=== PATIENT | female | born 1935 | race Caucasian/White ===

== ENCOUNTER 2021-03-01 07:10 | Emergency (ER) | payer MEDICARE, BC ==
[~2021-03-01] VITALS: Ht 157.5 cm; Wt 45.4 kg
[2021-03-01] MEDS ORDERED: TDAP DIPH,PERTUSS,TET VAC/PF 0.5 ML DISP.SYRIN IM ONE ×2 (08:15→08:36)
--- NOTE | 2021-03-01 08:24 | NUR ---
PT IS IN ROOM #2B. DR URIBE EVALUATED THE PT.
[2021-03-01 09:51] LABS: HEMATOCRIT 39.8 % (31.2-41.9); MEAN CORPUSCULAR HEMOGLOBIN 33.2 uug (24.7-32.8); MEAN CORPUSCULAR VOLUME 98.5 fL (75.5-95.3); PLATELET COUNT (AUTO) 150 K/uL (179-408)
[2021-03-01 09:59] LABS: CREATININE 0.9 mg/dL (0.6-1.3); POTASSIUM 4.1 mmol/L (3.5-5.1)
[2021-03-01 10:04] LABS: BILIRUBIN,DIRECT 0.1 mg/dL (0.0-0.2); BILIRUBIN,TOTAL 0.4 mg/dL (0.2-1.0); TOTAL PROTEIN, SERUM 7.4 g/dL (6.4-8.2)
--- NOTE | 2021-03-01 11:28 | NUR ---
PT WAS EVALUATED BY DR URIBE. PT WAS D/C'd TO HOME. D/C INSTRUCTIONS GIVEN TO THE PT AND TO PT's DOUGHTER.
[2021-03-01 11:30] VITALS: BP 139/75
== END 2021-03-01 11:38 | disposition home or self-care (01) ==
LOC: ER 07:10
DX: S09.90XA Unspecified injury of head, initial encounter (principal); S00.03XA Contusion of scalp, initial encounter; W01.0XXA Fall on same level from slipping, tripping and stumbling without subsequent striking against object, initial encounter; Y92.019 Unspecified place in single-family (private) house as the place of occurrence of the external cause; R94.31 Abnormal electrocardiogram [ECG] [EKG]; R03.0 Elevated blood-pressure reading, without diagnosis of hypertension; H40.9 Unspecified glaucoma; I65.29 Occlusion and stenosis of unspecified carotid artery; M46.02 Spinal enthesopathy, cervical region
CPT/HCPCS: 36415; 70450; 72125; 85025; 90715; 93005; A4217; A4663

== ENCOUNTER 2021-03-03 11:26 | Emergency (ER) | payer MEDICARE, BC ==
[~2021-03-03] VITALS: Ht 152.4 cm; Wt 45.4 kg
[2021-03-03 12:50] VITALS: BP 133/78
== END 2021-03-03 12:50 | disposition home or self-care (01) ==
LOC: ER 11:27
DX: S01.01XD Laceration without foreign body of scalp, subsequent encounter (principal); W01.0XXD Fall on same level from slipping, tripping and stumbling without subsequent striking against object, subsequent encounter; R03.0 Elevated blood-pressure reading, without diagnosis of hypertension
CPT/HCPCS: A4663

== ENCOUNTER 2022-11-25 14:23 | Inpatient (IN) | payer MEDICARE, BC ==
[~2022-11-25] VITALS: Ht 167.6 cm; Wt 61.2 kg
[~2022-11-25 14:23] MED LIST: CHOL2000 PO; CYAN100020 PO; DONE5TAB34 PO; DORZ10DR11 EACHEYE; LATA2.5D15 EACHEYE
[2022-11-25 15:58] VITALS: BP 120/62; TEMP 98.4; O2SAT 95
[2022-11-25] MEDS ORDERED: PANT40TA2 PO (16:52)
[2022-11-25] MEDS ORDERED: DOCU-141 PO (16:52)
[2022-11-25] MEDS ORDERED: ZOLP5TAB2 PO (16:52)
[2022-11-25] MEDS ORDERED: METO25TA6 PO ×2 (16:52)
[2022-11-25] MEDS ORDERED: ACETAMINOPHEN 325 MG TABLET PO PRN (17:00)
[2022-11-25] MEDS ORDERED: hydrALAZINE HCL 25 MG TABLET PO PRN (17:00)
[2022-11-25] MEDS: DORZOLAMIDE/TIMOLOL OPHT DROP 10 ML BOTTLE EACHEYE SCH (17:05)
[2022-11-25] MEDS ORDERED: ZOLPIDEM 5 MG TABLET PO PRN (17:15)
[2022-11-25 17:25] LABS: *RHEUMATOID FACTOR SCREEN NEGATIVE (NEGATIVE)
[2022-11-25 21:34] VITALS: BP 147/76; TEMP 98; O2SAT 0
[2022-11-25] MEDS: METOPROLOL TARTRATE 25 MG TABLET PO SCH (21:48)
[2022-11-25] MEDS: LATANOPROST OPHT DROP 2.5 ML BOTTLE EACHEYE SCH (21:48)
[2022-11-26 05:47] VITALS: BP 156/77; TEMP 98.2; O2SAT 100
[2022-11-26] MEDS: PANTOPRAZOLE SODIUM 40 MG TABLET.DR PO SCH (06:51)
[2022-11-26 07:12] LABS: BASOPHILS # (AUTO) 0.1 K/UL (0.0-0.2); BASOPHILS % (AUTO) 1.1 % (0.0-2.0); EOSINOPHILS # (AUTO) 0.1 K/uL (0.0-0.7); EOSINOPHILS % (AUTO) 1.9 % (0.0-7.0); HEMATOCRIT 38.5 % (31.2-41.9); HEMOGLOBIN 12.8 g/dL (10.9-14.3); MEAN CORPUSCULAR HEMOGLOBIN 32.6 uug (24.7-32.8); MEAN CORPUSCULAR HGB CONC 33 g/dL (32.3-35.6); MEAN CORPUSCULAR VOLUME 98.4 fL (75.5-95.3); MONOCYTES # (AUTO) 0.5 K/uL (0.1-1.30); MONOCYTES % (AUTO) 9.5 % (0.0-11.0); NEUTROPHILS # (AUTO) 3.1 K/uL (1.8-8.9); NEUTROPHILS % (AUTO) 65.5 % (38.5-71.5); PLATELET COUNT (AUTO) 173 K/uL (179-408); RED BLOOD CELL COUNT(AUTO) 3.91 MIL/uL (3.63-4.92); RED CELL DISTRIBUTION WIDTH 14.4 % (12.3-17.7); WHITE BLOOD COUNT (AUTO) 4.7 K/uL (3.8-11.8)
[2022-11-26 07:24] LABS: DIFFERENTIAL COMMENT 1
[2022-11-26 07:40] VITALS: BP 139/78; TEMP 98.6; O2SAT 99
[2022-11-26] MEDS: DORZOLAMIDE/TIMOLOL OPHT DROP 10 ML BOTTLE EACHEYE SCH ×2 (08:04→16:27)
[2022-11-26] MEDS: DONEPEZIL 5 MG TABLET PO SCH (08:05)
[2022-11-26] MEDS: METOPROLOL TARTRATE 25 MG TABLET PO SCH ×2 (08:05→20:22)
[2022-11-26] MEDS: CHOLECALCIFEROL 1,000 UNIT TABLET PO SCH (08:05)
[2022-11-26] MEDS ORDERED: Medication Not On Formulary EA (Cholecalciferol (Vitamin D3) (Vitamin D3) 1 CAP) PO SCH (09:00)
[2022-11-26] MEDS ORDERED: CYANOCOBALAMIN 1,000 MCG TABLET PO SCH (09:00)
[2022-11-26 09:07] LABS: FOLATE (FOLIC ACID), SERUM 7.3 ng/mL (>3.0)
[2022-11-26 10:06] LABS: CANCER AG, 125 17.3 U/mL (0.0-38.1); CARCINOEMBRYONIC AG (CEA) 1.7 ng/mL (0.0-4.7)
[2022-11-26 11:07] LABS: HEPATITIS B SURFACE AB, QUAL Non Reactive (.); HEPATITIS B SURFACE AG Negative (Negative); HEPATITIS C VIRUS ANTIBODY Non Reactive (Non Reactive)
[2022-11-26 12:06] LABS: *ANTI-SCLERODERMA-70 AB <0.2 AI (0.0-0.9); *RNP ANTIBODIES 0.3 AI (0.0-0.9); *SJOGREN'S ANTI-SS-A <0.2 AI (0.0-0.9); *SJOGREN'S ANTI-SS-B <0.2 AI (0.0-0.9); *SMITH ANTIBODIES <0.2 AI (0.0-0.9); ANTI-DNA(DS) AB, QN <1 IU/mL (0-9); ANTI-NUCLEAR AB DIRECT Negative (Negative)
[2022-11-26 15:56] VITALS: BP 146/82; TEMP 98.5; O2SAT 98
[2022-11-26] MEDS: ACETAMINOPHEN 325 MG TABLET PO PRN (19:39)
[2022-11-26] MEDS: DOCUSATE SODIUM 100 MG CAPSULE PO SCH (20:01)
[2022-11-26 20:20] VITALS: BP 136/76; TEMP 97.6; O2SAT 96
[2022-11-26] MEDS: LATANOPROST OPHT DROP 2.5 ML BOTTLE EACHEYE SCH (20:22)
[2022-11-27 04:20] VITALS: BP 125/69; TEMP 97.9; O2SAT 97
[2022-11-27] MEDS: PANTOPRAZOLE SODIUM 40 MG TABLET.DR PO SCH (06:15)
[2022-11-27 06:52] LABS: BASOPHILS # (AUTO) 0.1 K/UL (0.0-0.2); BASOPHILS % (AUTO) 1.1 % (0.0-2.0); EOSINOPHILS # (AUTO) 0.1 K/uL (0.0-0.7); EOSINOPHILS % (AUTO) 1.9 % (0.0-7.0); HEMATOCRIT 33.2 % (31.2-41.9); HEMOGLOBIN 11.2 g/dL (10.9-14.3); LYMPHOCYTES # (AUTO) 1.1 K/uL (0.8-4.8); LYMPHOCYTES % (AUTO) 21.3 % (20.5-51.5); MEAN CORPUSCULAR HGB CONC 34 g/dL (32.3-35.6); MEAN CORPUSCULAR VOLUME 97.6 fL (75.5-95.3); MONOCYTES # (AUTO) 0.6 K/uL (0.1-1.30); MONOCYTES % (AUTO) 11.8 % (0.0-11.0); NEUTROPHILS # (AUTO) 3.4 K/uL (1.8-8.9); NEUTROPHILS % (AUTO) 63.9 % (38.5-71.5); PLATELET COUNT (AUTO) 185 K/uL (179-408); RED CELL DISTRIBUTION WIDTH 14.4 % (12.3-17.7); WHITE BLOOD COUNT (AUTO) 5.4 K/uL (3.8-11.8)
[2022-11-27 07:06] LABS: DIFFERENTIAL COMMENT 1
[2022-11-27 08:00] VITALS: BP 105/49; TEMP 98; O2SAT 94
[2022-11-27] MEDS: CHOLECALCIFEROL 1,000 UNIT TABLET PO SCH (09:55)
[2022-11-27] MEDS: METOPROLOL TARTRATE 25 MG TABLET PO SCH ×2 (09:55→21:00)
[2022-11-27] MEDS: DONEPEZIL 5 MG TABLET PO SCH (09:55)
[2022-11-27] MEDS: DORZOLAMIDE/TIMOLOL OPHT DROP 10 ML BOTTLE EACHEYE SCH ×2 (10:05→16:27)
[2022-11-27] MEDS: ACETAMINOPHEN 325 MG TABLET PO PRN (10:37)
[2022-11-27 12:34] VITALS: TEMP 97.4
[2022-11-27 15:28] VITALS: TEMP 97.8
[2022-11-27] MEDS: DOCUSATE SODIUM 100 MG CAPSULE PO SCH (21:00)
[2022-11-27] MEDS: LATANOPROST OPHT DROP 2.5 ML BOTTLE EACHEYE SCH (21:00)
[2022-11-27 22:06] VITALS: BP 130/60; TEMP 98; O2SAT 100
[2022-11-28 05:03] VITALS: BP 144/77; TEMP 98; O2SAT 100
[2022-11-28] MEDS: PANTOPRAZOLE SODIUM 40 MG TABLET.DR PO SCH (06:44)
[2022-11-28 06:45] LABS: BASOPHILS # (AUTO) 0.1 K/UL (0.0-0.2); BASOPHILS % (AUTO) 1.9 % (0.0-2.0); EOSINOPHILS # (AUTO) 0.1 K/uL (0.0-0.7); EOSINOPHILS % (AUTO) 2.4 % (0.0-7.0); HEMATOCRIT 36.5 % (31.2-41.9); HEMOGLOBIN 12.1 g/dL (10.9-14.3); LYMPHOCYTES # (AUTO) 1.3 K/uL (0.8-4.8); LYMPHOCYTES % (AUTO) 29.8 % (20.5-51.5); MEAN CORPUSCULAR HEMOGLOBIN 32.4 uug (24.7-32.8); MEAN CORPUSCULAR HGB CONC 33 g/dL (32.3-35.6); MEAN CORPUSCULAR VOLUME 97.8 fL (75.5-95.3); MONOCYTES # (AUTO) 0.4 K/uL (0.1-1.30); NEUTROPHILS # (AUTO) 2.5 K/uL (1.8-8.9); NEUTROPHILS % (AUTO) 56.9 % (38.5-71.5); PLATELET COUNT (AUTO) 183 K/uL (179-408); RED BLOOD CELL COUNT(AUTO) 3.73 MIL/uL (3.63-4.92); RED CELL DISTRIBUTION WIDTH 14.4 % (12.3-17.7); WHITE BLOOD COUNT (AUTO) 4.4 K/uL (3.8-11.8)
[2022-11-28 06:55] LABS: DIFFERENTIAL COMMENT 1
[2022-11-28 07:01] LABS: CALCIUM 9.1 mg/dL (8.5-10.1); CARBON DIOXIDE 27 mmol/L (21-32); CHLORIDE 105 mmol/L (98-107); GLUCOSE 100 mg/dL (74-106); SODIUM SERUM 141 mmol/L (136-145); UREA NITROGEN, BLOOD 27 mg/dL (7-18)
[2022-11-28] MEDS ORDERED: IV NS 1000 ML 1,000 ML IV SCH (09:00)
[2022-11-28] MEDS ORDERED: IV NS 1000 ML 1,000 ML IV ONE (09:15)
[2022-11-28] MEDS: DONEPEZIL 5 MG TABLET PO SCH (09:37)
[2022-11-28] MEDS: METOPROLOL TARTRATE 25 MG TABLET PO SCH ×2 (09:37→21:43)
[2022-11-28] MEDS: DORZOLAMIDE/TIMOLOL OPHT DROP 10 ML BOTTLE EACHEYE SCH ×2 (09:38→17:53)
[2022-11-28] MEDS: CHOLECALCIFEROL 1,000 UNIT TABLET PO SCH (09:38)
[2022-11-28] MEDS: ACETAMINOPHEN 325 MG TABLET PO PRN (09:38)
[2022-11-28 20:00] VITALS: BP 145/78; TEMP 98.2; O2SAT 96
[2022-11-28] MEDS: LATANOPROST OPHT DROP 2.5 ML BOTTLE EACHEYE SCH (21:43)
[2022-11-28] MEDS: DOCUSATE SODIUM 100 MG CAPSULE PO SCH (21:43)
[2022-11-29 04:00] VITALS: BP 145/76; TEMP 98.6; O2SAT 96
[2022-11-29 06:18] LABS: BASOPHILS # (AUTO) 0.1 K/UL (0.0-0.2); BASOPHILS % (AUTO) 1.4 % (0.0-2.0); EOSINOPHILS # (AUTO) 0.1 K/uL (0.0-0.7); EOSINOPHILS % (AUTO) 1.9 % (0.0-7.0); HEMATOCRIT 34.3 % (31.2-41.9); HEMOGLOBIN 11.5 g/dL (10.9-14.3); LYMPHOCYTES # (AUTO) 1.1 K/uL (0.8-4.8); LYMPHOCYTES % (AUTO) 26.2 % (20.5-51.5); MEAN CORPUSCULAR HEMOGLOBIN 32.7 uug (24.7-32.8); MEAN CORPUSCULAR HGB CONC 34 g/dL (32.3-35.6); MEAN CORPUSCULAR VOLUME 97.5 fL (75.5-95.3); MONOCYTES # (AUTO) 0.4 K/uL (0.1-1.30); MONOCYTES % (AUTO) 9.6 % (0.0-11.0); NEUTROPHILS # (AUTO) 2.6 K/uL (1.8-8.9); NEUTROPHILS % (AUTO) 60.9 % (38.5-71.5); PLATELET COUNT (AUTO) 180 K/uL (179-408); RED BLOOD CELL COUNT(AUTO) 3.52 MIL/uL (3.63-4.92); RED CELL DISTRIBUTION WIDTH 14.3 % (12.3-17.7); WHITE BLOOD COUNT (AUTO) 4.2 K/uL (3.8-11.8)
[2022-11-29 06:26] LABS: DIFFERENTIAL COMMENT 1
[2022-11-29 06:31] LABS: CALCIUM 8.6 mg/dL (8.5-10.1); CARBON DIOXIDE 28 mmol/L (21-32); CHLORIDE 107 mmol/L (98-107); CREATININE 0.9 mg/dL (0.6-1.3); GLUCOSE 102 mg/dL (74-106); POTASSIUM 3.9 mmol/L (3.5-5.1); SODIUM SERUM 143 mmol/L (136-145); UREA NITROGEN, BLOOD 23 mg/dL (7-18)
[2022-11-29] MEDS: PANTOPRAZOLE SODIUM 40 MG TABLET.DR PO SCH (07:00)
[2022-11-29 08:27] VITALS: TEMP 97.9
[2022-11-29] MEDS: CHOLECALCIFEROL 1,000 UNIT TABLET PO SCH (09:00)
[2022-11-29] MEDS: DORZOLAMIDE/TIMOLOL OPHT DROP 10 ML BOTTLE EACHEYE SCH ×2 (10:40→17:00)
[2022-11-29] MEDS: METOPROLOL TARTRATE 25 MG TABLET PO SCH ×2 (10:40→20:09)
[2022-11-29] MEDS: DONEPEZIL 5 MG TABLET PO SCH (10:40)
[2022-11-29 16:16] VITALS: BP 156/69; TEMP 97.2; O2SAT 97
[2022-11-29 16:21] VITALS: BP 142/77; TEMP 98.8; O2SAT 96
[2022-11-29] MEDS: LATANOPROST OPHT DROP 2.5 ML BOTTLE EACHEYE SCH (20:09)
[2022-11-29] MEDS: DOCUSATE SODIUM 100 MG CAPSULE PO SCH (20:09)
[2022-11-29 22:08] VITALS: BP 138/68; TEMP 98.6; O2SAT 96
[2022-11-30] MEDS: PANTOPRAZOLE SODIUM 40 MG TABLET.DR PO SCH (06:09)
[2022-11-30 06:12] VITALS: BP 110/62; TEMP 98.9
[2022-11-30 08:00] VITALS: BP 145/84; TEMP 98.4; O2SAT 96
[2022-11-30] MEDS ORDERED: GADOTERATE MEGLUMINE 5 MMOL/10 ML VIAL IV ONE (08:22)
[2022-11-30] MEDS: CHOLECALCIFEROL 1,000 UNIT TABLET PO SCH (08:44)
[2022-11-30] MEDS: DONEPEZIL 5 MG TABLET PO SCH (08:44)
[2022-11-30] MEDS: METOPROLOL TARTRATE 25 MG TABLET PO SCH ×2 (08:46→21:37)
[2022-11-30] MEDS: DORZOLAMIDE/TIMOLOL OPHT DROP 10 ML BOTTLE EACHEYE SCH ×2 (08:54→18:04)
[2022-11-30] MEDS: ACETAMINOPHEN 325 MG TABLET PO PRN (11:06)
[2022-11-30 16:00] VITALS: BP 118/64; TEMP 97.3; O2SAT 96
[2022-11-30 20:19] VITALS: BP 109/59; TEMP 98.4; O2SAT 97
[2022-11-30] MEDS: LATANOPROST OPHT DROP 2.5 ML BOTTLE EACHEYE SCH (21:36)
[2022-11-30] MEDS: DOCUSATE SODIUM 100 MG CAPSULE PO SCH (21:37)
[2022-12-01 04:08] VITALS: BP 126/59; TEMP 97.5; O2SAT 98
[2022-12-01] MEDS: PANTOPRAZOLE SODIUM 40 MG TABLET.DR PO SCH (06:11)
[2022-12-01 07:38] LABS: EOSINOPHILS # (AUTO) 0.1 K/uL (0.0-0.7); HEMATOCRIT 32.9 % (31.2-41.9); LYMPHOCYTES # (AUTO) 0.9 K/uL (0.8-4.8); LYMPHOCYTES % (AUTO) 20.2 % (20.5-51.5); MEAN CORPUSCULAR HGB CONC 33 g/dL (32.3-35.6); MONOCYTES # (AUTO) 0.5 K/uL (0.1-1.30); MONOCYTES % (AUTO) 10.5 % (0.0-11.0); NEUTROPHILS # (AUTO) 2.9 K/uL (1.8-8.9); NEUTROPHILS % (AUTO) 66.3 % (38.5-71.5); PLATELET COUNT (AUTO) 201 K/uL (179-408); RED BLOOD CELL COUNT(AUTO) 3.33 MIL/uL (3.63-4.92); RED CELL DISTRIBUTION WIDTH 14.5 % (12.3-17.7); WHITE BLOOD COUNT (AUTO) 4.3 K/uL (3.8-11.8)
[2022-12-01 07:51] VITALS: BP 134/65; TEMP 98.4; O2SAT 98
[2022-12-01] MEDS: DORZOLAMIDE/TIMOLOL OPHT DROP 10 ML BOTTLE EACHEYE SCH ×2 (08:10→16:11)
[2022-12-01] MEDS: DONEPEZIL 5 MG TABLET PO SCH (08:10)
[2022-12-01] MEDS: METOPROLOL TARTRATE 25 MG TABLET PO SCH ×2 (08:10→21:00)
[2022-12-01] MEDS: CHOLECALCIFEROL 1,000 UNIT TABLET PO SCH (08:10)
[2022-12-01 16:00] VITALS: BP 128/70; TEMP 98.5; O2SAT 94
[2022-12-01 20:45] VITALS: BP 101/47; TEMP 98.8; O2SAT 95
[2022-12-01] MEDS: LATANOPROST OPHT DROP 2.5 ML BOTTLE EACHEYE SCH (21:01)
[2022-12-01] MEDS: DOCUSATE SODIUM 100 MG CAPSULE PO SCH (21:02)
[2022-12-02 04:05] VITALS: BP 110/57; TEMP 99
[2022-12-02] MEDS: PANTOPRAZOLE SODIUM 40 MG TABLET.DR PO SCH (06:43)
[2022-12-02 07:53] VITALS: BP 112/94; TEMP 98.4; O2SAT 97
[2022-12-02] MEDS: DONEPEZIL 5 MG TABLET PO SCH (09:41)
[2022-12-02] MEDS: CHOLECALCIFEROL 1,000 UNIT TABLET PO SCH (09:41)
[2022-12-02] MEDS: METOPROLOL TARTRATE 25 MG TABLET PO SCH ×2 (09:41→20:59)
[2022-12-02] MEDS: DORZOLAMIDE/TIMOLOL OPHT DROP 10 ML BOTTLE EACHEYE SCH ×2 (09:42→17:18)
[2022-12-02] MEDS: ACETAMINOPHEN 325 MG TABLET PO PRN (12:10)
[2022-12-02 15:23] VITALS: BP 110/76; TEMP 97.6; O2SAT 100
[2022-12-02 20:00] VITALS: BP 111/59; TEMP 98.3; O2SAT 96
[2022-12-02] MEDS: DOCUSATE SODIUM 100 MG CAPSULE PO SCH (20:50)
[2022-12-02] MEDS: LATANOPROST OPHT DROP 2.5 ML BOTTLE EACHEYE SCH (20:50)
[2022-12-03] MEDS: ACETAMINOPHEN 325 MG TABLET PO PRN ×3 (03:55→18:01)
[2022-12-03 04:00] VITALS: BP 145/71; TEMP 98; O2SAT 97
[2022-12-03] MEDS: PANTOPRAZOLE SODIUM 40 MG TABLET.DR PO SCH (06:26)
[2022-12-03 08:00] VITALS: BP 149/74; TEMP 98.2; O2SAT 97
[2022-12-03] MEDS: CHOLECALCIFEROL 1,000 UNIT TABLET PO SCH (08:36)
[2022-12-03] MEDS: DONEPEZIL 5 MG TABLET PO SCH (08:36)
[2022-12-03] MEDS: METOPROLOL TARTRATE 25 MG TABLET PO SCH ×2 (08:37→20:29)
[2022-12-03] MEDS: DORZOLAMIDE/TIMOLOL OPHT DROP 10 ML BOTTLE EACHEYE SCH ×2 (08:38→18:01)
[2022-12-03 15:11] VITALS: BP 125/66; TEMP 97.6; O2SAT 98
[2022-12-03 20:00] VITALS: BP 104/56; TEMP 97.5; O2SAT 96
[2022-12-03] MEDS: LATANOPROST OPHT DROP 2.5 ML BOTTLE EACHEYE SCH (20:29)
[2022-12-03] MEDS: DOCUSATE SODIUM 100 MG CAPSULE PO SCH (20:29)
[2022-12-04 04:00] VITALS: BP 132/69; TEMP 97.7; O2SAT 96
[2022-12-04] MEDS: PANTOPRAZOLE SODIUM 40 MG TABLET.DR PO SCH (06:10)
[2022-12-04 07:31] VITALS: BP 153/84; TEMP 98.4; O2SAT 97
[2022-12-04] MEDS: DONEPEZIL 5 MG TABLET PO SCH (08:33)
[2022-12-04] MEDS: METOPROLOL TARTRATE 25 MG TABLET PO SCH ×2 (08:33→20:13)
[2022-12-04] MEDS: CHOLECALCIFEROL 1,000 UNIT TABLET PO SCH (08:33)
[2022-12-04] MEDS: DORZOLAMIDE/TIMOLOL OPHT DROP 10 ML BOTTLE EACHEYE SCH ×2 (08:34→16:23)
[2022-12-04] MEDS: ACETAMINOPHEN 325 MG TABLET PO PRN ×2 (11:07→20:08)
[2022-12-04 15:13] VITALS: BP 112/59; TEMP 97.6; O2SAT 93
[2022-12-04 20:00] VITALS: BP 127/69; TEMP 98.2; O2SAT 98
[2022-12-04] MEDS: LATANOPROST OPHT DROP 2.5 ML BOTTLE EACHEYE SCH (20:08)
[2022-12-04] MEDS: DOCUSATE SODIUM 100 MG CAPSULE PO SCH (20:08)
[2022-12-04] MEDS: ACETAMINOPHEN ES 500 MG TABLET PO SCH (21:56)
[2022-12-05 04:00] VITALS: BP 138/70; TEMP 98; O2SAT 98
[2022-12-05] MEDS: PANTOPRAZOLE SODIUM 40 MG TABLET.DR PO SCH (06:14)
[2022-12-05] MEDS: ACETAMINOPHEN ES 500 MG TABLET PO SCH ×3 (06:14→21:06)
[2022-12-05] MEDS: CHOLECALCIFEROL 1,000 UNIT TABLET PO SCH (09:48)
[2022-12-05] MEDS: DONEPEZIL 5 MG TABLET PO SCH (09:48)
[2022-12-05] MEDS: METOPROLOL TARTRATE 25 MG TABLET PO SCH ×2 (09:51→20:52)
[2022-12-05] MEDS: DORZOLAMIDE/TIMOLOL OPHT DROP 10 ML BOTTLE EACHEYE SCH ×2 (09:52→16:55)
[2022-12-05] MEDS: TRAMADOL HCL 50 MG TABLET PO PRN (10:54)
[2022-12-05 11:21] VITALS: BP 120/75; TEMP 98.2; O2SAT 96
[2022-12-05 15:06] VITALS: BP 118/64; TEMP 98.4; O2SAT 95
[2022-12-05 20:27] VITALS: BP 110/66; TEMP 98.1; O2SAT 95
[2022-12-05] MEDS: DOCUSATE SODIUM 100 MG CAPSULE PO SCH (20:51)
[2022-12-05] MEDS: LATANOPROST OPHT DROP 2.5 ML BOTTLE EACHEYE SCH (20:52)
[2022-12-06 04:22] VITALS: BP 139/69; TEMP 98.2; O2SAT 97
[2022-12-06] MEDS: PANTOPRAZOLE SODIUM 40 MG TABLET.DR PO SCH (06:35)
[2022-12-06] MEDS: ACETAMINOPHEN ES 500 MG TABLET PO SCH ×3 (06:35→21:02)
[2022-12-06 07:45] VITALS: BP 146/72; TEMP 98.1; O2SAT 94
[2022-12-06] MEDS: CHOLECALCIFEROL 1,000 UNIT TABLET PO SCH (09:16)
[2022-12-06] MEDS: DONEPEZIL 5 MG TABLET PO SCH (09:16)
[2022-12-06] MEDS: METOPROLOL TARTRATE 25 MG TABLET PO SCH ×2 (09:18→20:58)
[2022-12-06] MEDS: DORZOLAMIDE/TIMOLOL OPHT DROP 10 ML BOTTLE EACHEYE SCH ×2 (09:28→18:02)
[2022-12-06] MEDS: TRAMADOL HCL 50 MG TABLET PO PRN (12:00)
[2022-12-06 16:54] VITALS: BP 113/68; TEMP 97.8; O2SAT 96
[2022-12-06 20:27] VITALS: BP 121/62; TEMP 98.2; O2SAT 94
[2022-12-06] MEDS: DOCUSATE SODIUM 100 MG CAPSULE PO SCH (20:57)
[2022-12-06] MEDS: LATANOPROST OPHT DROP 2.5 ML BOTTLE EACHEYE SCH (20:57)
[2022-12-07 04:13] VITALS: BP 121/67; TEMP 98.3; O2SAT 97
[2022-12-07] MEDS: ACETAMINOPHEN ES 500 MG TABLET PO SCH ×3 (06:29→21:31)
[2022-12-07] MEDS: PANTOPRAZOLE SODIUM 40 MG TABLET.DR PO SCH (06:29)
[2022-12-07 07:25] VITALS: BP 121/75; TEMP 98.2; O2SAT 96
[2022-12-07] MEDS: METOPROLOL TARTRATE 25 MG TABLET PO SCH ×2 (09:01→21:30)
[2022-12-07] MEDS: CHOLECALCIFEROL 1,000 UNIT TABLET PO SCH (09:01)
[2022-12-07] MEDS: DONEPEZIL 5 MG TABLET PO SCH (09:01)
[2022-12-07] MEDS: DORZOLAMIDE/TIMOLOL OPHT DROP 10 ML BOTTLE EACHEYE SCH ×2 (09:21→16:50)
[2022-12-07 16:06] VITALS: BP 134/63; TEMP 98.4; O2SAT 97
[2022-12-07] MEDS: MAGNESIUM HYDROXIDE 30 ML LIQUID UDC PO PRN (18:48)
[2022-12-07 20:07] VITALS: BP 139/77; TEMP 98.5; O2SAT 94
[2022-12-07] MEDS: LATANOPROST OPHT DROP 2.5 ML BOTTLE EACHEYE SCH (21:29)
[2022-12-07] MEDS: DOCUSATE SODIUM 100 MG CAPSULE PO SCH (21:29)
[2022-12-08 04:58] VITALS: BP 138/79; TEMP 98.5; O2SAT 97
[2022-12-08] MEDS: ACETAMINOPHEN ES 500 MG TABLET PO SCH ×3 (06:17→21:02)
[2022-12-08] MEDS: PANTOPRAZOLE SODIUM 40 MG TABLET.DR PO SCH (06:17)
[2022-12-08 07:25] LABS: BASOPHILS % (AUTO) 0.8 % (0.0-2.0); EOSINOPHILS % (AUTO) 0.9 % (0.0-7.0); HEMATOCRIT 33.3 % (31.2-41.9); HEMOGLOBIN 11.3 g/dL (10.9-14.3); LYMPHOCYTES # (AUTO) 0.8 K/uL (0.8-4.8); LYMPHOCYTES % (AUTO) 17.1 % (20.5-51.5); MEAN CORPUSCULAR HEMOGLOBIN 33.2 uug (24.7-32.8); MEAN CORPUSCULAR HGB CONC 34 g/dL (32.3-35.6); MEAN CORPUSCULAR VOLUME 97.5 fL (75.5-95.3); MONOCYTES # (AUTO) 0.3 K/uL (0.1-1.30); MONOCYTES % (AUTO) 6.7 % (0.0-11.0); NEUTROPHILS # (AUTO) 3.5 K/uL (1.8-8.9); NEUTROPHILS % (AUTO) 74.5 % (38.5-71.5); PLATELET COUNT (AUTO) 258 K/uL (179-408); RED BLOOD CELL COUNT(AUTO) 3.42 MIL/uL (3.63-4.92); RED CELL DISTRIBUTION WIDTH 14.5 % (12.3-17.7); WHITE BLOOD COUNT (AUTO) 4.7 K/uL (3.8-11.8)
[2022-12-08 07:37] LABS: DIFFERENTIAL COMMENT 1
[2022-12-08 08:00] VITALS: BP 144/72; TEMP 98.7; O2SAT 95
[2022-12-08] MEDS: CHOLECALCIFEROL 1,000 UNIT TABLET PO SCH (08:54)
[2022-12-08] MEDS: DONEPEZIL 5 MG TABLET PO SCH (08:54)
[2022-12-08] MEDS: DORZOLAMIDE/TIMOLOL OPHT DROP 10 ML BOTTLE EACHEYE SCH ×2 (08:55→16:44)
[2022-12-08] MEDS: METOPROLOL TARTRATE 25 MG TABLET PO SCH ×2 (08:55→21:02)
[2022-12-08 15:45] VITALS: BP 100/67; TEMP 98.3; O2SAT 96
[2022-12-08 20:00] VITALS: BP 127/66; TEMP 97.5; O2SAT 97
[2022-12-08] MEDS: DOCUSATE SODIUM 100 MG CAPSULE PO SCH (21:02)
[2022-12-08] MEDS: LATANOPROST OPHT DROP 2.5 ML BOTTLE EACHEYE SCH (21:02)
[2022-12-09 04:00] VITALS: BP 136/77; TEMP 98.7; O2SAT 98
[2022-12-09] MEDS: ACETAMINOPHEN ES 500 MG TABLET PO SCH ×3 (06:00→22:04)
[2022-12-09] MEDS: PANTOPRAZOLE SODIUM 40 MG TABLET.DR PO SCH (06:20)
[2022-12-09 08:00] VITALS: BP 101/68; TEMP 97.8; O2SAT 96
[2022-12-09] MEDS: CHOLECALCIFEROL 1,000 UNIT TABLET PO SCH (08:29)
[2022-12-09] MEDS: DONEPEZIL 5 MG TABLET PO SCH (08:29)
[2022-12-09] MEDS: METOPROLOL TARTRATE 25 MG TABLET PO SCH ×2 (08:30→20:12)
[2022-12-09] MEDS: DORZOLAMIDE/TIMOLOL OPHT DROP 10 ML BOTTLE EACHEYE SCH ×2 (08:30→16:57)
[2022-12-09] MEDS: TRAMADOL HCL 50 MG TABLET PO PRN (11:03)
[2022-12-09] MEDS: MAGNESIUM HYDROXIDE 30 ML LIQUID UDC PO PRN (11:03)
[2022-12-09 15:45] VITALS: BP 115/68; TEMP 97.5; O2SAT 94
[2022-12-09 19:35] VITALS: BP 116/71; TEMP 98; O2SAT 94
[2022-12-09] MEDS: LATANOPROST OPHT DROP 2.5 ML BOTTLE EACHEYE SCH (20:11)
[2022-12-09] MEDS: DOCUSATE SODIUM 100 MG CAPSULE PO SCH (20:12)
[2022-12-10 04:32] VITALS: BP 131/74; TEMP 98.1; O2SAT 96
[2022-12-10] MEDS: ACETAMINOPHEN ES 500 MG TABLET PO SCH ×3 (06:23→21:55)
[2022-12-10] MEDS: PANTOPRAZOLE SODIUM 40 MG TABLET.DR PO SCH (06:23)
[2022-12-10 08:00] VITALS: BP 108/59; TEMP 98.5; O2SAT 94
[2022-12-10] MEDS: CHOLECALCIFEROL 1,000 UNIT TABLET PO SCH (08:08)
[2022-12-10] MEDS: DONEPEZIL 5 MG TABLET PO SCH (08:08)
[2022-12-10] MEDS: METOPROLOL TARTRATE 25 MG TABLET PO SCH ×2 (08:09→21:56)
[2022-12-10] MEDS: DORZOLAMIDE/TIMOLOL OPHT DROP 10 ML BOTTLE EACHEYE SCH ×2 (08:09→16:42)
[2022-12-10] MEDS: ACETAMINOPHEN 325 MG TABLET PO PRN (10:40)
[2022-12-10 15:59] VITALS: BP 139/74; TEMP 98.6; O2SAT 93
[2022-12-10 20:00] VITALS: BP 101/52; TEMP 98.6; O2SAT 94
[2022-12-10] MEDS: LATANOPROST OPHT DROP 2.5 ML BOTTLE EACHEYE SCH (21:55)
[2022-12-10] MEDS: DOCUSATE SODIUM 100 MG CAPSULE PO SCH (21:56)
[2022-12-11 04:00] VITALS: BP 139/72; TEMP 98.4
[2022-12-11] MEDS: PANTOPRAZOLE SODIUM 40 MG TABLET.DR PO SCH (06:58)
[2022-12-11] MEDS: ACETAMINOPHEN ES 500 MG TABLET PO SCH (06:58)
[2022-12-11 08:00] VITALS: BP 134/66; TEMP 98.1; O2SAT 96
[2022-12-11 08:40] VITALS: BP 134/66
[2022-12-11] MEDS: METOPROLOL TARTRATE 25 MG TABLET PO SCH (08:40)
[2022-12-11] MEDS: DONEPEZIL 5 MG TABLET PO SCH (08:40)
[2022-12-11] MEDS: DORZOLAMIDE/TIMOLOL OPHT DROP 10 ML BOTTLE EACHEYE SCH (08:40)
[2022-12-11] MEDS: CHOLECALCIFEROL 1,000 UNIT TABLET PO SCH (08:42)
== END 2022-12-11 14:00 | DRG 560 ==
PROVIDERS: ADMIT Physical Medicine & Rehabilitation Pain Medicine; ATTEND Physical Medicine & Rehabilitation Pain Medicine
DX: S32.511D Fracture of superior rim of right pubis, subsequent encounter for fracture with routine healing (principal); D68.59 Other primary thrombophilia; S32.512D Fracture of superior rim of left pubis, subsequent encounter for fracture with routine healing; S32.592D Other specified fracture of left pubis, subsequent encounter for fracture with routine healing; S32.591D Other specified fracture of right pubis, subsequent encounter for fracture with routine healing; S32.19XD Other fracture of sacrum, subsequent encounter for fracture with routine healing; W18.30XD Fall on same level, unspecified, subsequent encounter; D69.6 Thrombocytopenia, unspecified; E86.0 Dehydration; G31.84 Mild cognitive impairment of uncertain or unknown etiology; I10 Essential (primary) hypertension; R79.89 Other specified abnormal findings of blood chemistry; F03.90 Unspecified dementia, unspecified severity, without behavioral disturbance, psychotic disturbance, mood disturbance, and anxiety; N28.1 Cyst of kidney, acquired; N90.7 Vulvar cyst; D75.89 Other specified diseases of blood and blood-forming organs
CPT/HCPCS: 36415; 82378; 82746; 83615; 84443; 85025; 86038; 86140; 86301; 86430; 86706; 86803; 87340; 97535-GO-CO; A9150; A9575; J7040